=== PATIENT | male | born 2000 | race Caucasian/White ===

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

== ENCOUNTER 2021-06-19 08:17 | Outpatient (CLI) | payer OTHER, SELFPAY | END 2021-06-19 23:59 | disposition home or self-care (01) | PROVIDERS: Referring Provider Orthopaedic Surgery; Visit Provider Orthopaedic Surgery | DX: Z11.59 Encounter for screening for other viral diseases (principal) | CPT/HCPCS: 87426; C9803 ==

== ENCOUNTER 2024-08-06 16:11 | Emergency (ER) | payer OTHER, SELFPAY ==
[2024-08-06 16:12] VITALS: BP 129/76; PULSE 120; RESP 16; TEMP 37.4; O2SAT 97; BMI 25.9
--- NOTE | 2024-08-06 16:27 | CT_ITS ---
PROCEDURE: ABDOMEN/PELVIS W IV CONT ONLY 08/06/2024 REASON FOR EXAM: RLQ PAIN TECHNIQUE: Abdomen and pelvis CT with intravenous contrast. Coronal and Sagittal reconstruction series were provided. PATIENT PREPARATION: Per protocol ORAL CONTRAST TYPE: None. AMOUNT: mL CONTRAST: Not provided VOLUME: Not provided mL Not Provided Gauge IV One or more dose reduction techniques were used (e.g., Automated exposure control, adjustment of the mA and/or kV according to patient size, use of iterative reconstruction technique. RADIATION DOSE SUMMARY: CTDlvol: 21 mGy DLP: 650 mGycm COMPARISON: None FINDINGS: Lung bases: Right basilar dependent atelectasis. Heart size is normal. No pericardial effusion. Liver: Normal size. No mass. Gallbladder: Unremarkable Spleen: Normal size. Pancreas: Normal size without evidence of mass surrounding inflammation or ductal dilation. Adrenals: Unremarkable Kidneys: Normal renal sizes. No hydronephrosis. Bladder: Unremarkable Reproductive Organs: Unremarkable Bowel: Evaluation of the bowel loops are limited due to lack of oral contrast. Stomach is unremarkable. Fluid-filled distal small bowel, no dilatation, wall thickening or adjacent stranding. The right and transverse colon are grossly unremarkable. The left colon is completely decompressed limiting evaluation. Appendix: The appendix appears grossly unremarkable. Lymph nodes: No lymphadenopathy. Vasculature: The abdominal aorta and IVC are normal. Peritoneum / Retroperitoneum: Unremarkable Bones: Unremarkable CT/Abdomen/Pelvis W IV Cont ONLY IMPRESSION: No evidence of acute appendicitis. Fluid-filled distal small bowel within the pelvis without inflammatory changes, may represent focal area of ileus versus enteritis. No inflammatory changes of the large bow el. However, please note evaluation is limited due to lack of oral contrast. Reading [facility]
--- NOTE | 2024-08-06 16:32 | ED.VIS.GI ---
HPI <RADHA Calhoun - Last Filed: 08/06/24 20:20> HPI - GI History of Present Illness Chief Complaint: Abd Pain Narrative Narrative: 23-year-old [place] male with no past medical history woke up around 5 AM with left lower quadrant abdominal pain. Since migrated to the right lower abdomen. He states he has vomited about 7 times and had 4 yellow diarrhea bowel movements. He denies blood in his vomit or stool. No fever or chills. No chest pain or shortness of breath or upper respiratory symptoms. No sick contacts. No history of abdominal surgery. He takes no medications. PFSH <RADHA Calhoun - Last Filed: 08/06/24 20:20> [facility] Home Medications ?Medication ?Instructions ?Recorded ?Last Taken ?Type dicyclomine 10 mg capsule 20 mg (2 x 10 mg) PO BID PRN 08/06/24 Unknown Rx abdominal pain 5 days #10 caps ondansetron 4 mg disintegrating 4 mg PO Q8H PRN PRN Nausea #12 tabs 08/06/24 Unknown Rx tablet Allergy/AdvReac Type Severity Reaction Status Date / Time No Known Allergies Allergy Verified 08/06/24 16:12 Social History Smoking Status: Never smoker ROS <RADHA Calhoun - Last Filed: 08/06/24 20:20> ROS ED ROS Narrative Constitutional: Negative for fever, chills, malaise. GI: Positive for abdominal pain, nausea, vomiting, diarrhea. Negative for melena, hematochezia. : Negative for dysuria, hematuria or frequency. EXAM <RADHA Calhoun - Last Filed: 08/06/24 20:20> Physical Exam Narrative Exam Narrative: CONST: Patient sitting in no acute distress. EYES: Normal inspection. NECK: Normal inspection. RESP: No respiratory distress, CTAB. CVS: Tachycardic with regular rhythm, no murmur, no gallop. ABD: Soft with generalized tenderness and voluntary guarding, no rebound, nondistended, no hepatosplenomegaly. SKIN: Color normal, no rash, warm, dry, intact. EXTREMITIES: Normal appearance, no pedal edema. NEURO: Alert and answering questions appropriately. PSYCH: Normal affect. Const Vital Signs: 08/06/24 16:12 08/06/24 16:39 08/06/24 17:15 Temperature 99.4 F H 98.7 F 98.5 F Temperature Source Oral Oral Oral Pulse Rate 120 H 94 101 H Respiratory Rate 16 18 16 Blood Pressure 129/76 H 139/78 H 140/83 H Blood Pressure Mean 93 98 102 Pulse Ox 97 96 99 Oxygen Delivery Method Room Air Room Air Room Air 08/06/24 19:01 Temperature 98.0 F Temperature Source Pulse Rate 72 Respiratory Rate 18 Blood Pressure 140/83 H Blood Pressure Mean 102 Pulse Ox 100 Oxygen Delivery Method <Dr. Dylan Correa DO - Last Filed: 08/06/24 23:29> Physical Exam Const Vital Signs: 08/06/24 16:12 08/06/24 16:39 08/06/24 17:15 Temperature 99.4 F H 98.7 F 98.5 F Temperature Source Oral Oral Oral Pulse Rate 120 H 94 101 H Respiratory Rate 16 18 16 Blood Pressure 129/76 H 139/78 H 140/83 H Blood Pressure Mean 93 98 102 Pulse Ox 97 96 99 Oxygen Delivery Method Room Air Room Air Room Air 08/06/24 19:01 Temperature 98.0 F Temperature Source Pulse Rate 72 Respiratory Rate 18 Blood Pressure 140/83 H Blood Pressure Mean 102 Pulse Ox 100 Oxygen Delivery Method MDM <RADHA Calhoun - Last Filed: 08/06/24 20:20> [facility] MDM Narrative Medical decision making narrative: Differential includes but not limited to: Colitis, diverticulitis, viral gastroenteritis, appendicitis, cholecystitis 23-year-old male presents with acute nausea and vomiting, abdominal pain, and diarrhea that started this morning. He appears well and nontoxic. HR is 120 with otherwise normal vital signs. His abdomen is soft with generalized tenderness. Labs show WBC of 15.5, hemoglobin 16.8, platelets 290. CMP is normal. Glucose 124. Lactic 1.5. CT shows fluid-filled small bowel which could be ileus versus enteritis. No inflammatory changes of bowel. No appendicitis. He feels better after IV fluids, morphine, and Zofran and tolerated p.o. intake. I prescribed Zofran and Bentyl, recommended he can also take Tylenol, and discussed fluid hydration and then bland diet as tolerated. Return if symptoms worsen. He was discharged in stable condition. Lab Data Attestation: I reviewed the patient's lab results. Labs: Laboratory Results - last 24 hr 08/06/24 08/06/24 08/06/24 16:26 16:32 17:18 WBC 15.5 H RBC 5.66 Hgb 16.8 H Hct 49.1 MCV 86.7 MCH 29.7 MCHC 34.2 RDW Std Deviation 37.5 RDW Coeff of [place] 11.7 Plt Count 290 MPV 9.2 Immature Gran % (Auto) 0.500 Neut % (Auto) 92.6 H Lymph % (Auto) 4.0 L [place] % (Auto) 2.6 Eos % (Auto) 0.1 Baso % (Auto) 0.2 Absolute Neuts (auto) 14.3 H Absolute Lymphs (auto) 0.62 L Nucleated RBC % 0 Sodium 137 Potassium 4.1 Chloride 102 Carbon Dioxide 24.8 Anion Gap 11 BUN 16 Creatinine 1.06 Estim Creat Clear Calc 116.42 Est GFR (MDRD) Non-Af 102 BUN/Creatinine Ratio 15.2 Glucose 124 H Lactic Acid 1.5 Calcium 9.4 Total Bilirubin 0.48 AST 27 ALT 27 Alkaline Phosphatase 91 Total Protein 7.6 Albumin 4.4 Globulin 3.2 Albumin/Globulin Ratio 1.4 Lipase 18 Urine Color Straw Urine Clarity Clear Urine pH 7.0 Ur Specific [place] 1.005 Urine Protein 15 H Urine Glucose (UA) Normal Urine Ketones Negative Urine Occult Blood Negative Urine Nitrite Negative Urine Bilirubin Negative Urine Urobilinogen Normal Ur Leukocyte Esterase Negative Urine RBC 0-5 SEEN Urine WBC 0-5 SEEN Ur Squamous Epith Cells 0 SEEN Urine Bacteria 0 SEEN Urine Mucus 0 SEEN Radiography Diagnostic Testing: Clinical Impression(s) from Imaging Studies Abdomen/Pelvis CT 08/06/24 16:27 IMPRESSION: No evidence of acute appendicitis. Fluid-filled distal small bowel within the pelvis without inflammatory changes, may represent focal area of ileus versus enteritis. No inflammatory changes of the large bowel. However, please note evaluation is limited due to lack of oral contrast. Reading Location: [facility] <Dr. Dylan Correa, DO - Last Filed: 08/06/24 23:29> [facility] Lab Data Labs: Laboratory Results - last 24 hr 08/06/24 08/06/24 08/06/24 16:26 16:32 17:18 WBC 15.5 H RBC 5.66 Hgb 16.8 H Hct 49.1 MCV 86.7 MCH 29.7 MCHC 34.2 RDW Std Deviation 37.5 RDW Coeff of [place] 11.7 Plt Count 290 MPV 9.2 Immature Gran % (Auto) 0.500 Neut % (Auto) 92.6 H Lymph % (Auto) 4.0 L [place] % (Auto) 2.6 Eos % (Auto) 0.1 Baso % (Auto) 0.2 Absolute Neuts (auto) 14.3 H Absolute Lymphs (auto) 0.62 L Nucleated RBC % 0 Sodium 137 Potassium 4.1 Chloride 102 Carbon Dioxide 24.8 Anion Gap 11 BUN 16 Creatinine 1.06 Estim Creat Clear Calc 116.42 Est GFR (MDRD) Non-Af 102 BUN/Creatinine Ratio 15.2 Glucose 124 H Lactic Acid 1.5 Calcium 9.4 Total Bilirubin 0.48 AST 27 ALT 27 Alkaline Phosphatase 91 Total Protein 7.6 Albumin 4.4 Globulin 3.2 Albumin/Globulin Ratio 1.4 Lipase 18 Urine Color Straw Urine Clarity Clear Urine pH 7.0 Ur Specific [place] 1.005 Urine Protein 15 H Urine Glucose (UA) Normal Urine Ketones Negative Urine Occult Blood Negative Urine Nitrite Negative Urine Bilirubin Negative Urine Urobilinogen Normal Ur Leukocyte Esterase Negative Urine RBC 0-5 SEEN Urine WBC 0-5 SEEN Ur Squamous Epith Cells 0 SEEN Urine Bacteria 0 SEEN Urine Mucus 0 SEEN Radiography Diagnostic Testing: Clinical Impression(s) from Imaging Studies Abdomen/Pelvis CT 08/06/24 16:27 IMPRESSION: No evidence of acute appendicitis. Fluid-filled distal small bowel within the pelvis without inflammatory changes, may represent focal area of ileus versus enteritis. No inflammatory changes of the large bowel. However, please note evaluation is limited due to lack of oral contrast. Reading Location: [facility] Treatment and Re-Evaluation :: I have personally performed a face to face assessment of the patient and have reviewed the ANITHA Note. I performed a substantive portion of the visit including all aspects of the following. My jurado findings include: History: Patient presents with abdominal pain that began today. Patient states it is gradually gotten worse. Patient states it is constant. Patient states it is aching. Patient states it is mainly over the right lower abdomen. Patient states that it is worse with trying to drink any fluids. Patient admits to some nausea and vomiting. Patient denies any hematemesis or coffee-ground emesis. Patient denies any melena or hematochezia. Patient denies any urinary complaints. Exam: Vital signs are stable except for mild tachycardia of 120. Patient is afebrile. Patient is in no acute distress. Oral mucosa is pink and moist. Neck is supple. Trachea is midline. There is no JVD. Heart was regular rate and rhythm. Lungs are clear and equal bilaterally. Abdomen is soft. Bowel sounds are normal. There is lower abdominal tenderness, worse on the right. There is no rebound or guarding noted. Cranial nerves II through XII are intact. There are no focal motor or sensory deficits noted. Medical Decision Making: Differential diagnosis includes appendicitis, diverticulitis, bowel obstruction, perforation, ureteral calculus, pyelonephritis, and gastroenteritis. CBC will be obtained to assess for leukocytosis and anemia. Comprehensive metabolic profile will be obtained to assess for hepatic function, renal function, and electrolyte abnormality. Lipase will be obtained to assess for pancreatitis. Serum lactate will be obtained to assess for sepsis. Urinalysis will be obtained to assess for urinary tract infection and hematuria. CT scan of the abdomen and pelvis will be obtained to assess for appendicitis, diverticulitis, ureteral calculus, bowel obstruction, and perforation. Patient was given IV fluids, morphine, and Zofran. CBC was reviewed and showed a mild leukocytosis of 15.5. Hemoglobin was slightly elevated at 16.8. Comprehensive metabolic profile was reviewed and was within normal limits. Lipase was reviewed and was normal. Urinalysis was reviewed. There is no evidence of urinary tract infection or hematuria. CT scan of the abdomen and pelvis was obtained. There is no evidence of bowel obstruction or perforation. There is no evidence of appendicitis. This was interpreted by the radiologist and was also independently reviewed by myself. Patient was advised of his findings. Patient was instructed to start with a bland diet and advance as tolerated. Patient was instructed to follow-up with his primary care physician in 5 to 7 days. Patient understood and was agreeable with the plan. All questions were answered. Discharge Plan Triage Chief Complaint: Abd Pain ED Midlevel Provider: Eloisa Myers ED Provider: Dylan Correa Dx/Rx/DC Orders Clinical Impression: Enteritis, Abdominal pain Instructions: Abdominal Pain, ED Diet Vomiting Diarrhea Prescriptions: New ondansetron 4 mg tablet,disintegrating 4 mg PO Q8H PRN PRN (Reason: Nausea) Qty: 12 0RF dicyclomine 10 mg capsule 20 mg PO BID PRN (Reason: abdominal pain) 5 Days Qty: 10 0RF Primary Care Provider: Delicia Prince Referrals: Delicia Prince, [Primary Care Provider] - Activity Restrictions/Additional Instructions: Your CT scan showed enteritis which is inflammation of your small intestine. This can cause pain and vomiting and diarrhea. I prescribed Zofran to take as needed for nausea and vomiting and Bentyl which helps abdominal pain. You can also take [id number] Tylenol for pain every 6 hours. If your symptoms worsen or you cannot keep anything down despite taking the medication please come back to the emergency room. Print Language: Georgian Disposition Disposition: Home, Self Care Discharge Date/Time: 08/06/24 19:03
[2024-08-06] MEDS: Morphine 4 MG/ML Syringe IV (16:38)
[2024-08-06] MEDS: 0.9% Normal Saline (1000mL) 1,000 ML 999 ML IV (16:38)
[2024-08-06] MEDS: Ondansetron 4 MG/2 ML Vial IV (16:38)
[2024-08-06 16:39] VITALS: BP 139/78; PULSE 94; RESP 18; TEMP 37.1; O2SAT 96
[2024-08-06 16:40] LABS: Absolute Lymphocyte Count 0.62 X10^3/uL (0.83-4.51); Absolute Neutrophil Count 14.3 X10^3/uL (2.0-7.7); Basophil# 0.03 X10^3/uL; Basophil% 0.2 % (0-1); Eosinophil# 0.01 X10^3/uL; Eosinophils% 0.1 % (0-5); Hematocrit 49.1 % (40-54); Hemoglobin 16.8 g/dL (13.0-16.5); Lymphocyte # 0.62 X10^3/ul (0.83-4.51); Mean Corp Hgb Conc 34.2 g/dL (32-36); Mean Corpuscular Hgb 29.7 pg (27.0-32.0); Mean Corpuscular Volume 86.7 fL (80-94); Mean Platelet Vol. 9.2 fl (6.2-12.0); Monocyte% 2.6 % (0-10); NRBC Flagged by Analyzer 0 % (0-5); Neutrophil # 14.34 X10^3/uL (2.7-7.7); Neutrophil % 92.6 % (47-70); Platelet Count 290 K/mm3 (150-450); RBC Distribution Width CV 11.7 % (11.6-14.6); RBC Distribution Width SD 37.5 fl (35.1-43.9); Red Blood Count 5.66 M/mm3 (4.6-6.2); White Blood Count 15.5 K/mm3 (4.4-11.0)
[2024-08-06 17:04] LABS: Lactic Acid 1.5 mmol/L (0.0-2.0)
[2024-08-06 17:07] LABS: Lipase 18 U/L (13-75)
[2024-08-06 17:15] VITALS: BP 140/83; PULSE 101; RESP 16; TEMP 36.9; O2SAT 99
[2024-08-06 17:22] LABS: ALB/GLOB Ratio 1.4 RATIO (0.9-2.4); AST(SGOT) 27 U/L (<=37); Alanine Aminotransfer ALT/SGPT 27 U/L (<=46); Albumin, Serum 4.4 g/dL (3.5-5.0); Alkaline Phosphatase 91 U/L (40-129); Anion Gap 11 (5-15); BUN 16 mg/dL (4-19); BUN/Creat Ratio 15.2 RATIO (10-20); Calcium,Total 9.4 mg/dL (7.6-11.0); Carbon Dioxide 24.8 mmol/L (21.0-32.0); Chloride 102 mmol/L (98-108); Creatinine, Serum 1.06 mg/dL (0.70-1.20); EST Glomerular Filtration Rate 102 (>60); Estimated Creatinine Clearance 116.42 ml/min (50-250); Globulin 3.2 g/dL (2.2-4.2); Glucose 124 mg/dL (70-99); Potassium 4.1 mmol/L (3.3-5.1); Protein, Total 7.6 g/dL (5.9-8.4); Sodium Level 137 mmol/L (133-145); Total Bilirubin 0.48 mg/dL (0.00-1.30)
[2024-08-06 17:23] LABS: Bacteria 0 SEEN /hpf (None Seen); Mucous, Urine 0 SEEN /hpf (<or=2+); Squamous Epithelial Cells - UA 0 SEEN /hpf (0-5)
[2024-08-06 17:29] LABS: Color, Urine Straw (Yellow); Glucose, Dipstick Normal (Normal); Ketone-Dipstick Negative (Negative); Leukocyte Esterase-Dipstick Negative /ul (Negative); Nitrite-Dipstick Negative (Negative); Occult Blood-Urine Negative /ul (Negative); Protein-Dipstick 15 mg/dl (Negative); Specific Gravity, Urine 1.005 (1.002-1.030); Urine Bilirubin Dipstick Negative (Negative); Urine Clarity Clear (Clear); Urine Urobilinogen Normal (Normal)
[2024-08-06 17:57] LABS: Red Blood Cells-Urine 0-5 SEEN /hpf (0-5); White Blood Cells 0-5 SEEN /hpf (0-5)
[2024-08-06] MEDS: Ketorolac 15 MG/ML Vial IV (18:07)
[2024-08-06 19:01] VITALS: BP 140/83; PULSE 72; RESP 18; TEMP 36.7; O2SAT 100
== END 2024-08-06 19:03 | disposition home or self-care (01) ==
PROVIDERS: Physician Assistant; Emergency Provider Emergency Medicine; Visit Provider Emergency Medicine
DX: R10.31 Right lower quadrant pain (principal); K52.9 Noninfective gastroenteritis and colitis, unspecified; R10.32 Left lower quadrant pain
CPT/HCPCS: 74177; 80053; 81001; 83605; 83690; 85025; 96361; 96374; 96375; 99283; Q9967; A4216; J2405